=== PATIENT | male | born 1950 | race Caucasian/White ===

== ENCOUNTER 2018-11-13 10:27 | Emergency (ER) | payer MEDICARE, OTHER ==
[~2018-11-13] VITALS: Ht 177.8 cm; Wt 119.6 kg
--- NOTE | 2018-11-13 11:20 | NUR ---
PT PRESENTS TO ED WITH SOB THAT BEGAN ABOUT 0900 AND HAS ODD FEELING IN THE CHEST, NO ASPIRIN TODAY. HX DM2, GOUT, COPD, HTN. PT PLACED ON MONITOR, CALL LIGHT WITHIN REACH, PA AT BEDSIDE
[2018-11-13] MEDS ORDERED: ASPIRIN 81 MG TABLET CHEW PO ONE (11:30)
[2018-11-13] MEDS ORDERED: ASPIRIN 81 MG TABLET CHEW ONE (11:39)
[2018-11-13 11:52] LABS: BASOPHILS # (AUTO) 0.06 x10^3/uL (0-0.1); BASOPHILS % (AUTO) 1 % (0-1); EOSINOPHILS # (AUTO) 0.28 x10^3/uL (0-0.4); EOSINOPHILS % (AUTO) 4 % (1-7); LYMPHOCYTES # (AUTO) 1.53 x10^3/uL (1-3.4); LYMPHOCYTES % (AUTO) 22 % (22-44); MD NO; MEAN CORPUSCULAR HEMOGLOBIN 29.4 pg (27.5-34.5); MEAN CORPUSCULAR HGB CONC 33.3 g/dL (33.2-36.2); MEAN CORPUSCULAR VOLUME 88.3 fL (81-97); MEAN PLATELET VOLUME 9.5 fL (7.4-10.4); MONOCYTES # (AUTO) 0.68 x10^3/uL (0.2-0.8); MONOCYTES % (AUTO) 10 % (2-9); NEUTROPHILS # (AUTO) 4.43 x10^3/uL (1.8-6.8); NEUTROPHILS % (AUTO) 64 % (42-75); PLATELET COUNT 185 x10^3/uL (130-400); RED BLOOD COUNT 4.83 x10^6/uL (4.38-5.82); RED CELL DISTRIBUTION WIDTH 14.6 % (9.4-14.8)
[2018-11-13 12:02] LABS: ALBUMIN 3.6 g/dL (3.4-5.0); ANION GAP 9 mmol/L (5-15); CALCIUM 9.6 mg/dL (8.5-10.1); CHLORIDE 105 mmol/L (98-107)
[2018-11-13 12:08] LABS: ALANINE AMINOTRANSFERASE 39 U/L (12-78); ALKALINE PHOSPHATASE 64 U/L (45-117); BILIRUBIN,TOTAL 0.3 mg/dL (0.2-1.0); CREATININE 1.25 mg/dL (0.7-1.3); TOTAL PROTEIN 7.2 g/dL (6.4-8.2); TROPONIN I < 0.015 ng/mL (0.000-0.045)
--- NOTE | 2018-11-13 12:22 | NUR ---
PT RESTING IN [facility], ADMIT ORDERS RECIEVED, AWAITING BED ASSIGNMENT
[2018-11-13 12:23] VITALS: BP 120/78
--- NOTE | 2018-11-13 12:42 | NUR ---
PT REFUSING IV AND ADMISSION STATES "ITS NOT AN OPTION TO STAY HERE OVERNIGHT", NOTIFIED
== END 2018-11-13 13:17 | disposition home or self-care (01) ==
LOC: ED 12:20 → EDIP 12:27 → UNDOADMIN 12:27 → ED 13:17
DX: R07.89 Other chest pain (principal)
CPT/HCPCS: 36415; 71045; 80053; 84484; 85025; 93005; 99284

== ENCOUNTER 2020-01-17 15:53 | Emergency (ER) | payer MEDICARE, OTHER ==
[~2020-01-17] VITALS: Ht 177.8 cm; Wt 116.1 kg
[2020-01-17 16:15] LABS: BASOPHILS # (AUTO) 0.04 x10^3/uL (0-0.1); BASOPHILS % (AUTO) 1 % (0-1); EOSINOPHILS # (AUTO) 0.33 x10^3/uL (0-0.4); EOSINOPHILS % (AUTO) 4 % (1-7); LYMPHOCYTES # (AUTO) 1.48 x10^3/uL (1-3.4); LYMPHOCYTES % (AUTO) 18 % (22-44); MD NO; MEAN CORPUSCULAR HEMOGLOBIN 29.6 pg (27.5-34.5); MEAN CORPUSCULAR HGB CONC 32.9 g/dL (33.2-36.2); MEAN CORPUSCULAR VOLUME 90.1 fL (81-97); MEAN PLATELET VOLUME 9.1 fL (7.4-10.4); MONOCYTES # (AUTO) 0.71 x10^3/uL (0.2-0.8); MONOCYTES % (AUTO) 9 % (2-9); NEUTROPHILS # (AUTO) 5.81 x10^3/uL (1.8-6.8); NEUTROPHILS % (AUTO) 69 % (42-75); PLATELET COUNT 205 x10^3/uL (130-400); RED BLOOD COUNT 5.01 x10^6/uL (4.38-5.82); RED CELL DISTRIBUTION WIDTH 14.8 % (9.4-14.8)
--- NOTE | 2020-01-17 16:16 | NUR ---
PRODUCTION DIRECTOR: PT AMBULATORY TO ROOM FROM LOBBY
[2020-01-17 16:26] LABS: ALBUMIN 3.9 g/dL (3.4-5.0); ANION GAP 11 mmol/L (5-15); CALCIUM 9.8 mg/dL (8.5-10.1); CHLORIDE 108 mmol/L (98-107); CREATININE 1.27 mg/dL (0.7-1.3)
--- NOTE | 2020-01-17 16:49 | NUR ---
first contact with pt. Pt here for lower right flank pain with sudden onset 3 hours ago. Pain was so bad that he had an episode of emesis. Pt believes he is having a kidney stone as he had one a long time ago and this feels like the same. pt's aox4. resps even and unlabored. bp/spo2 monitors in place. call light within reach.
--- NOTE | 2020-01-17 16:49 | NUR ---
pt provided urine sample at this time. ua sent.
[2020-01-17 16:57] LABS: MICROSCOPIC INDICATED
[2020-01-17 18:16] VITALS: BP 137/85
--- NOTE | 2020-01-17 18:18 | NUR ---
CERTIFIED CYTOTECHNOLOGIST: Patient/Caregiver given discharge instructions and they have confirmed that they understand the instructions. Patient ambulatory with steady gait.
== END 2020-01-17 18:23 | disposition home or self-care (01) ==
LOC: ED 17:22
DX: N30.00 Acute cystitis without hematuria (principal)
CPT/HCPCS: 36415; 74176; 80048; 81001; 82040; 85025; 87086; 99284

== ENCOUNTER → 2020-11-09 | Outpatient (CLI) | payer MEDICARE ==
[~2020-11-09] MED LIST: ALBU18HF INH; ALLO300T PO; AMLO-150 PO; CLON0.3T PO; DOXA2TAB9 PO; FLOVENT INH; FLUT12AE INH; METF500T17 PO; VALS320T15 PO; VALS320T2 PO
== END | disposition home or self-care (01) ==
LOC: STAR 09:46
PROVIDERS: ATTEND Urology
DX: Z01.818 Encounter for other preprocedural examination (principal); N20.0 Calculus of kidney; I44.0 Atrioventricular block, first degree; I44.4 Left anterior fascicular block; Z20.822 Contact with and (suspected) exposure to COVID-19
CPT/HCPCS: 93005; U0003

== ENCOUNTER 2020-11-15 13:12 | Observation (INO) | payer MEDICARE ==
[~2020-11-15] VITALS: Ht 179.1 cm; Wt 123.0 kg
[2020-11-15 14:03] VITALS: BP 137/92
[2020-11-15] MEDS: LACTATED RINGERS 1,000 ML IV SCH (14:25)
[2020-11-15] MEDS ORDERED: CHLORHEXIDINE 15 ML UDC PO ONE (14:30)
[2020-11-15] MEDS ORDERED: MIDAZOLAM 1 MG/ML, 2ML ONE (15:19)
[2020-11-15] MEDS ORDERED: FENTANYL PF 250 MCG/5ML ONE (15:19)
[2020-11-15] MEDS ORDERED: SUCCINYLCHOLINE 20 MG/ML, 10ML ONE (15:22)
[2020-11-15] MEDS ORDERED: ROCURONIUM 10MG/ML,5ML ONE (15:22)
[2020-11-15] MEDS ORDERED: PROPOFOL 10 MG/ML, 20ML ONE (15:22)
[2020-11-15] MEDS ORDERED: DEXAMETHASONE 4 MG/ML, 1ML ONE (15:22)
[2020-11-15] MEDS ORDERED: OMNIPAQUE 350 MG/ML, 50 ML BOTTLE ONE (15:27)
[2020-11-15] MEDS ORDERED: CEFAZOLIN 1,000 MG ONE (15:32)
[2020-11-15] MEDS ORDERED: FENTANYL PF 100 MCG/2ML IV PRN (16:00)
[2020-11-15] MEDS ORDERED: PROMETHAZINE 25 MG/ML, 1ML IVPush PRN (16:00)
[2020-11-15] MEDS ORDERED: OXYcodone 5 MG/5 ML ORAL.SOL UDC PO PRN (16:00)
[2020-11-15] MEDS ORDERED: DIPHENHYDRAMINE 50 MG/ML, 1ML IVPush PRN ×2 (16:00)
[2020-11-15] MEDS ORDERED: ONDANSETRON 2MG/ML, 2ML IVPush PRN ×2 (16:00→22:00)
[2020-11-15] MEDS ORDERED: ALBUTEROL SULFATE 2.5 MG/3 ML NPPB PRN (16:00)
[2020-11-15] MEDS ORDERED: HYDROmorphone 1 MG/ML, 1ML INJ IVPush PRN (16:00)
[2020-11-15] MEDS ORDERED: PROMETHAZINE 12.5 MG SUPP PR PRN (16:00)
[2020-11-15] MEDS ORDERED: ACETAMINOPHEN 325 MG TABLET PO PRN (16:00)
[2020-11-15] MEDS ORDERED: MEPERIDINE/PF 25MG/0.5ML IVPush PRN (16:00)
[2020-11-15] MEDS ORDERED: EPHEDRINE 50 MG/ML, 1ML IVPush PRN (16:00)
[2020-11-15] MEDS ORDERED: hydrALAzine 20 MG/ML, 1ML IV PRN (16:00)
[2020-11-15] MEDS ORDERED: MIDAZOLAM 1 MG/ML, 2ML IV PRN (16:00)
[2020-11-15] MEDS ORDERED: DIAZEPAM 5 MG/ML, 2ML IVPush PRN (16:00)
[2020-11-15] MEDS ORDERED: ONDANSETRON 2MG/ML, 2ML ONE (17:44)
[2020-11-15] MEDS ORDERED: LABETALOL 5MG/ML, 20ML ONE (20:00)
[2020-11-15] MEDS: LABETALOL 5MG/ML, 20ML IV PRN ×2 (20:04→21:03)
[2020-11-15] MEDS ORDERED: D5%-0.45% NACL 1,000 ML IV SCH (22:00)
[2020-11-15] MEDS ORDERED: INSULIN REGULAR 100 UNITS/ML, 3ML VIAL SQ-INSULIN ONE (22:00)
[2020-11-15] MEDS ORDERED: HYDROmorphone 1 MG/ML, 1ML INJ IM PRN (22:00)
[2020-11-15] MEDS ORDERED: OXYcodone/APAP 5/325MG TABLET PO PRN (22:00)
[2020-11-15] MEDS ORDERED: INSULIN SINGLE DOSE, ER ONE (22:22)
[2020-11-15] MEDS: SODIUM CHLORIDE 0.45% 1,000 ML IV SCH (23:00)
[2020-11-16] MEDS ORDERED: HYDROmorphone 1 MG/ML, 1ML INJ IV PRN
[2020-11-16] MEDS: LACTATED RINGERS 1,000 ML IV SCH (00:37)
[2020-11-16] MEDS ORDERED: KETOROLAC 30 MG/1 ML ONE (00:47)
[2020-11-16] MEDS: HYDROmorphone 1 MG/ML, 1ML INJ IV PRN ×2 (00:52→04:21)
[2020-11-16 01:00] VITALS: BP 136/82
[2020-11-16] MEDS ORDERED: KETOROLAC 30 MG/1 ML IVPush PRN (01:00)
[2020-11-16 03:41] VITALS: BP 145/85
[2020-11-16 06:15] VITALS: BP 156/92
[2020-11-16] MEDS: INSULIN REGULAR 100 UNITS/ML, 3ML VIAL SQ-INSULIN SCH ×2 (08:47→10:59)
[2020-11-16] MEDS: SODIUM CHLORIDE 0.45% 1,000 ML IV SCH (08:48)
[2020-11-16 12:07] VITALS: BP 129/83
[2020-11-16 13:01] LABS: CHLORIDE 104 mmol/L (98-107)
[2020-11-16 13:08] LABS: ANION GAP 9 mmol/L (5-15); CALCIUM 9.4 mg/dL (8.5-10.1); CREATININE 2.21 mg/dL (0.7-1.3)
== END 2020-11-16 15:13 | disposition home or self-care (01) ==
LOC: OR 13:12 → ORIP 21:38 → 4NE 22:47 → DCLOUNGE 11-16 15:08
PROVIDERS: ADMIT Urology; ATTEND Urology
DX: N20.2 Calculus of kidney with calculus of ureter (principal); I10 Essential (primary) hypertension; Z79.899 Other long term (current) drug therapy
CPT/HCPCS: 52353; 52356; 74018; 80048; 82360; 82962; 88300; 96361; 96374; 96375; 96376; C1758; C1769; C2617; G0378; J0330; J0690; J1100; J1170; J1815; J1885; J2250; J2405; J2704; J3010; J7120; Q9967; 76000

== ENCOUNTER 2020-11-20 06:29 | Emergency (ER) | payer MEDICARE ==
[~2020-11-20] VITALS: Ht 180.3 cm; Wt 119.1 kg
--- NOTE | 2020-11-20 06:53 | NUR ---
REPORT AND CARE TO SUZIE GOOD. PT JUST WHEELED BACK TO ROOM AT THIS TIME, AND PLACED ON CR MONITOR. MD TO BEDSIDE TO JESSICA DIXON.
--- NOTE | 2020-11-20 06:53 | NUR ---
PT BROUGHT BACK FROM TRIAGE WITH CHIEF COMPLAINT OF SOB STARTED THIS AM (1AM). PT ABLE TO SPEAK FULL SENTANCES WITH ACCESORY MUSCLE USE. PT REPORTS RECENT BLADDER SURGERY. PT TOOK HOME BREATHING TREATMENTS.
--- NOTE | 2020-11-20 06:57 | NUR ---
ERMD ST BEDSIDE FOR EVAL
[2020-11-20] MEDS ORDERED: SODIUM CHLORIDE FLUSH 10ML SYR IVF ONE (07:00)
[2020-11-20 07:24] LABS: BASOPHILS % (AUTO) 1 % (0-1); EOSINOPHILS % (AUTO) 0 % (1-7); LYMPHOCYTES % (AUTO) 6 % (22-44); MEAN CORPUSCULAR HEMOGLOBIN 28.1 pg (27.5-34.5); MEAN CORPUSCULAR HGB CONC 32.7 g/dL (33.2-36.2); MONOCYTES % (AUTO) 13 % (2-9); NEUTROPHILS % (AUTO) 80 % (42-75); PLATELET COUNT 163 x10^3/uL (130-400); RED BLOOD COUNT 4.33 x10^6/uL (4.38-5.82); RED CELL DISTRIBUTION WIDTH 15.1 % (9.4-14.8)
[2020-11-20 07:28] LABS: MD NO
[2020-11-20] MEDS ORDERED: ALBUTEROL/IPRATROPIUM 2.5MG/0.5MG, 3 ML NEB ONE (07:30)
[2020-11-20 07:35] LABS: ALBUMIN 3.2 g/dL (3.4-5.0); ANION GAP 6 mmol/L (5-15); CALCIUM 9.3 mg/dL (8.5-10.1); CHLORIDE 106 mmol/L (98-107); CREATININE 1.63 mg/dL (0.7-1.3)
[2020-11-20] MEDS ORDERED: ALBUTEROL/IPRATROPIUM 2.5MG/0.5MG, 3 ML ONE ×2 (07:37→09:21)
[2020-11-20 07:38] LABS: TROPONIN I < 0.015 ng/mL (0.000-0.045)
[2020-11-20] MEDS ORDERED: OMNIPAQUE 350 MG/ML, 75ML BOTTLE ONE (08:15)
--- NOTE | 2020-11-20 08:18 | NUR ---
PT TO CT
[2020-11-20] MEDS ORDERED: SODIUM CHLORIDE 0.9%, 500ML IVBOLUS ONE (08:30)
--- NOTE | 2020-11-20 08:30 | NUR ---
PT BACK FROM CT, RESTING IN BED. PT REPORTS BREATHING HAS IMPROVED.
--- NOTE | 2020-11-20 09:17 | NUR ---
ERMD AT BEDSIDE TO DISCUSS POC
[2020-11-20] MEDS ORDERED: methylPREDNISolone SOD SUCC 125 MG/2 ML ONE (09:21)
[2020-11-20 09:30] VITALS: BP 118/52
[2020-11-20] MEDS ORDERED: methylPREDNISolone SOD SUCC 125 MG/2 ML IVPush SCH (09:30)
[2020-11-20] MEDS ORDERED: ALBUTEROL SULFATE 2.5 MG/3 ML NPPB ONE (09:30)
--- NOTE | 2020-11-20 09:43 | NUR ---
Discharge instructions reviewed
[2020-11-20] MEDS ORDERED: methylPREDNISolone SOD SUCC 125 MG/2 ML IVPush ONE (10:00)
== END 2020-11-20 09:45 | disposition home or self-care (01) ==
LOC: ED 06:57
DX: J20.8 Acute bronchitis due to other specified organisms (principal); R06.00 Dyspnea, unspecified; R00.0 Tachycardia, unspecified; R06.02 Shortness of breath; I44.7 Left bundle-branch block, unspecified; I10 Essential (primary) hypertension; E11.9 Type 2 diabetes mellitus without complications; M10.9 Gout, unspecified
CPT/HCPCS: 36415; 71045; 71275; 80048; 82040; 84484; 85025; 85379; 93005; 94640; 96361; 96374; 99285; J2930; J7040; J7613; Q9967